=== PATIENT | male | born 1980 | race African-American/Black ===

== ENCOUNTER 2017-03-16 10:26 | Emergency (ER) | payer MEDICAID, OTHER ==
[~2017-03-16] VITALS: Ht 172.7 cm; Wt 80.0 kg
[2017-03-16] MEDS ORDERED: KETOROLAC 60MG/2ML VIAL IM STA (11:05)
[2017-03-16] MEDS ORDERED: CYCLOBENZAPRINE 10MG TABLET PO ONE (11:15)
[2017-03-16 11:44] VITALS: BP 151/73
== END 2017-03-16 12:34 | disposition home or self-care (01) ==
LOC: ER 10:48
DX: M54.89 Other dorsalgia (principal); H54.61 Unqualified visual loss, right eye, normal vision left eye; R03.0 Elevated blood-pressure reading, without diagnosis of hypertension
CPT/HCPCS: 71010; 96372; 99283; J1885